=== PATIENT | male | born 1955 | race Caucasian/White ===

== ENCOUNTER 2020-07-09 07:53 | Outpatient (CLI) | payer MEDICARE, SELFPAY ==
[2020-07-09 11:29] LABS: Basophils Absolute Auto 0.2 K/mm3 (0.0-0.1); Basophils Percent Auto 2.1 % (0.2-1.2); Eosinophils Absolute Auto 0.3 K/mm3 (0-0.3); Eosinophils Percent Auto 3.3 % (0-4.4); Hematocrit 45.7 % (42.0-52.0); Hemoglobin 15.4 g/dL (14.0-18.0); Immature Granulocyte Absolute 0.07 K/mm3 (0.00-0.031); Immature Granulocyte Percent A 0.8 % (0-0.5); Lymphocytes Absolute Auto 2.66 K/mm3 (0.9-3.2); Lymphocytes Percent Auto 32.2 % (18.3-44.2); Mean Corpuscular HGB Conc 33.7 g/dl (32-36); Mean Corpuscular Hemoglobin 33.1 pg (26-34); Mean Corpuscular Volume 98.3 fl (80-100); Monocytes Absolute Auto 0.8 K/mm3 (0.1-0.6); Monocytes Percent Auto 9.8 % (2.6-8.5); Neutrophils Absolute Auto 4.3 K/mm3 (1.3-6.7); Neutrophils Percent Auto 51.8 % (45.5-73.1); Platelet Count Result 184 k/mm3 (150-375); Red Blood Count 4.65 M/mm3 (4.6-6.20); Red Cell Distribution Width 12.7 % (11.5-14.5); White Blood Count 8.3 K/mm3 (4.5-10.0)
--- NOTE | 2020-07-09 11:36 | ECG_ITS ---
Measurements Intervals [place] Rate: 59 P: 57 PA: 142 QRS: 94 QRSD: 113 T: 5 QT: 427 QTc: 426 Interpretive Statements SINUS BRADYCARDIA ATRIAL AND VENTRICULAR PREMATURE COMPLEXES RIGHT AXIS DEVIATION INTRAVENTRICULAR CONDUCTION DELAY BASELINE ARTIFACT- I, III, AVR, AVL, AVF BORDERLINE ECG Electronically Signed On 07-09-2020 12:29:20 CDT by Joselo Snell D.O.
[2020-07-09 11:53] LABS: Alanine Aminotransferase 16 U/L (4-50); Alkaline Phosphatase 46 U/L (38-126); Anion Gap 6 mmol/L (8-16); Aspartate Amino Transferase 26 U/L (17-59); Bilirubin,Total 0.6 mg/dL (0.2-1.3); Blood Urea Nitrogen 15 mg/dL (9-20); Calcium 9.1 mg/dL (8.4-10.2); Carbon Dioxide 23 mmol/L (22-30); Chloride 109 mmol/L (98-107); Cholesterol 149 mg/dL (0-200); Estimated Glomerular Filt Rate > 60; Glucose 87 mg/dL (75-110); HDL Direct 42 mg/dL; Potassium 4.1 mmol/L (3.4-5.0); Sodium 138 mmol/L (137-145); Triglycerides 83 mg/dL (<150)
[2020-07-09 12:08] LABS: LDL Cholesterol Direct 96 mg/dL
== END 2020-07-09 07:54 | disposition home or self-care (01) ==
PROVIDERS: PCP Family Medicine; Visit Provider Family Medicine
DX: I25.10 Atherosclerotic heart disease of native coronary artery without angina pectoris (principal); I70.91 Generalized atherosclerosis; R53.83 Other fatigue
CPT/HCPCS: 36415; 80053; 80061; 85025; 93005

== ENCOUNTER 2020-10-11 09:44 | Emergency (ER) | payer MEDICARE, SELFPAY ==
--- NOTE | ~2020-10-11 | XR_ITS ---
EXAMINATION: XR femur RT min 2V DATE: 10/11/2020 11:15 INDICATION: Right thigh pain. TECHNIQUE: 2 views of right femur on 5 radiographs were obtained. COMPARISON: None. FINDINGS: Bone alignment is normal. No acute fracture. There are old healed fractures of the right hernandez perior pubic ramus and bilateral inferior pubic rami. There is patchy sclerosis in distal femur and p roximal tibia, consistent with osteonecrosis. Right knee joint space is normal. There is mild right h ip osteoarthritis. No knee joint effusion. Partially visualized is a total left hip arthroplasty. IMPRESSION: 1. Patchy sclerosis in distal right femur and proximal right tibia, consistent with osteonecrosis. 2. Mild right hip osteoarthritis. Reviewed, dictated and finalized at location A. TIC COUNSELLOR
[2020-10-11 09:54] VITALS: BP 110/92; PULSE 75; RESP 18; TEMP 36.4; O2SAT 97
--- NOTE | 2020-10-11 11:05 | ED.LOWEXIN ---
HPI - Extremity Injury (Lower) General Chief Complaint: Extremity Injury, Lower Stated Complaint: right leg pain Time Seen by Provider: 10/11/20 10:56 Source: patient and family Mode of arrival: ambulatory Limitations: no limitations History of Present Illness HPI Narrative: Patient is 65 years old white male complaining of pain at the front of the right thigh started 5 days ago after getting up from sitting position to walk to the kitchen. Patient denies any fall or any specific trauma Related Data Allergies Allergy/AdvReac Type Severity Reaction Status Date / Time codeine Allergy Unknown Verified 08/17/17 10:40 oxycodone Allergy Unknown Nausea Verified 06/18/18 10:14 Penicillins Allergy Unknown Verified 06/10/17 15:37 Review of Systems Review of Systems: Narrative: CONSTITUTIONAL: Denies fever, chills, or sweats. EYES: Denies visual changes, redness, or discharge. ENT: Denies rhinorrhea, congestion, sore throat, or otalgia. CARDIOVASCULAR: Denies chest pain, palpitations, or edema. RESPIRATORY: Denies cough or dyspnea. GASTROINTESTINAL: Denies abdominal pain, nausea, vomiting, or diarrhea. GENITOURINARY: Denies dysuria or hematuria. SKIN: Denies rash or itching. MUSCULOSKELETAL: Denies back pain, joint pain, or myalgia. NEUROLOGIC: Denies headache, numbness, or weakness. PSYCHIATRIC: Denies anxiety or depression. PMFSH Past Medical History Medical History (Updated 10/11/20 @ 11:46 by Kae Devlin MD) Rheumatoid arthritis Family History Family History Father Family history of coronary artery disease Mother Family history of malignant neoplasm of breast in first degree relative Social History Social History Smoking status: Light tobacco smoker Second hand tobacco smoke exposure: Yes Smoking end date: 09/28/16 Alcohol intake: current Gender identity (if verbalized by the patient): Male Exam Narrative: Exam Narrative: General appearance: Well-developed, well-nourished Skin: Normal color Head: Normocephalic, nontraumatic Eyes: Clear conjunctiva ENT: Oropharynx normal, ears normal, nose normal Neck: Supple, nontender Chest and respiratory: Airway patent, no respiratory distress, no accessory muscle use Heart: Regular rate/rhythm Abdomen: Soft, nontender, no organomegaly, quiet bowel sounds Vascular: Normal peripheral pulses, normal capillary refill. Musculoskeletal: Right thigh showed no swelling, no deformity, no bruises, no mass. Tenderness localized to the mid shaft anteriorly, pain gets worse with knee flexion. Resolved any site. Neurologic: Alert and oriented ?3, GUITAR TECHNICIAN is normal as tested, no gross motor deficit Course Course Emergency Course: Stable Vital Signs Vital signs: Vital Signs Temperature 36.4 C L 10/11/20 09:54 Pulse Rate 75 10/11/20 09:54 Respiratory Rate 18 10/11/20 09:54 Blood Pressure 110/92 H 10/11/20 09:54 Pulse Oximetry 97 10/11/20 09:54 Temperature 36.4 C L 10/11/20 09:54 Pulse Rate 75 10/11/20 09:54 Respiratory Rate 18 10/11/20 09:54 Blood Pressure 110/92 H 10/11/20 09:54 Pulse Oximetry 97 10/11/20 09:54 MDM - Extremity Injury (Lower) MDM Narrative Medical decision making narrative: Drug use sudden pain right thigh anteriorly. Patient also A strain/sprain of the muscle is my concern. X-ray right femur ordered, further plan to follow Differential Diagnosis Differential diagnosis: Likely fracture of femur and other (Muscular strain/sprain) Imaging Data Radiologist's impression: Impressions Femur X-Ray 10/11/20 11:18 IMPRESSION: 1. Patchy sclero
[2020-10-11] MEDS: MORPHINE SULFATE INJ (*CRX) 10 MG/ML AMP 6 MG IM (11:52)
[2020-10-11] MEDS: ONDANSETRON HCL ODT 4 MG TABLET PO (11:52)
== END 2020-10-11 12:01 | disposition home or self-care (01) ==
PROVIDERS: Emergency Provider Emergency Medicine; PCP Family Medicine
DX: M79.651 Pain in right thigh (principal); M06.9 Rheumatoid arthritis, unspecified; Z87.891 Personal history of nicotine dependence; M16.11 Unilateral primary osteoarthritis, right hip; M89.9 Disorder of bone, unspecified
CPT/HCPCS: 73552; 96372; 99283; A9270; J2270